=== PATIENT | female | born 1990 | race Two or more races ===

== ENCOUNTER 2024-11-21 18:05 | Emergency (ER) | payer MEDICAID, SELFPAY ==
[2024-11-21 18:18] VITALS: BP 133/87; PULSE 64; RESP 18; TEMP 37.1; O2SAT 96; BMI 29.0
--- NOTE | 2024-11-21 19:39 | XR_ITS ---
Examination: CT abdomen with intravenous contrast CT pelvis with intravenous contrast 2-D coronal reconstructions 2-D sagittal reconstructions Date and time of exam:November 21, 2024 2049 hours INDICATIONS: Abdominal pain and distention today. CTDI: vol (mGy) 14.6 DLP: (mGycm) 447 Technique: Multiple axial sections of the abdomen and pelvis have been obtained. 64 slice high-resolution scanner used. 3 mm axial sections have been obtained, post intravenous injection 60 cc [id number] 2-D sagittal, coronal reconstructions obtained. Low dose protocols were performed. One or more of the following dose reduction techniques were used; automated exposure control, adjustment of the mA and/or KV according to patient size, use of iterative reconstruction technique. Findings: No focal liver is clinic lesion Contracted gallbladder No biliary tract dilatation No pancreatic mass No renal or ureteral calculi, no hydronephrosis Aorta normal size Normal appendix No bowel obstruction Anteverted uterus No adnexal mass Contracted urinary bladder Moderate disc narrowing posteriorly at L5-S1 Tiny fat-containing femoral hernias IMPRESSION: No renal or ureteral calculi, no hydronephrosis Normal appendix No bowel obstruction diverticulitis or free air
--- NOTE | 2024-11-21 19:40 | PD.EDABDPN ---
ED Abdominal Pain RME/HPI General Chief Complaint: Abdominal Pain Stated complaint: ABDOMINAL PAIN Time seen by provider: 11/21/24 19:01 Arrival date/time: 11/21/24 18:05 RME / HPI RME / HPI narrative: 33-year-old female patient with no significant medical history, came in for evaluation regarding abdominal pain and distention. Onset of symptoms earlier today, severity of symptoms moderate, patient denies any vomiting fever diarrhea or constipation denies any dysuria frequency. Also complaining of left inguinal swelling, nontender for several days now. No medication was taken prior to arrival. Related Data Previous Rx's ?Medication ?Instructions ?Recorded ibuprofen 800 mg tablet 800 mg PO Q6H PRN pain #30 tabs 02/07/21 dicyclomine 20 mg tablet 20 mg PO TID PRN abdominal pain 11/21/24 #20 tabs Allergies Allergy/AdvReac Type Severity Reaction Status Date / Time No Known Allergies Allergy Unknown Verified 11/21/24 18:07 Review of Systems Review of Systems Narrative Review of Systems: Review of system reviewed and within normal limits except mentioned in HPI ED Exam Narrative Physical exam: VITAL SIGNS: Reviewed. GENERAL APPEARANCE: Alert and interactive, follows commands, no acute distress, HEAD AND FACE: Non-traumatic. ENT: PERRL, pink conjunctivitis, eyelid no trauma, Mucous membrane moist. NECK: Supple, nontender, no nuchal rigidity. CHEST: No tenderness, no crepitus, no paradoxical movement, no retractions. LUNGS: Clear, well ventilated, symmetric, no rales, no wheezing, no ronchi, no stridor, good breath sounds bilaterally. HEART: Regular rate, regular rhythm, no murmur, no gallops. ABDOMEN: Soft, positive bowel sounds, distended, no guarding, slight tenderness lower abdomen, no rebound, no masses, RECTAL: Deferred. GENITAL: Deferred. NEUROLOGICAL: Gross motor function intact sensory function intact, Appropriate for age. MUSCULOSKELETAL: low back nontender, full range of motion. EXTREMITIES: Movable lymphadenopathy noted on the left inguinal area, nontender, full range of motion. SKIN: Color pink, dry, no rash, no lacerations, no abrasions, no contusions. LYMPHATICS: Deferred. Course Quality Measures none Orders Category Date Time Status CT Screening NOW Care 11/21/24 19:[address] abdomen pelvis w con Stat Exams 11/21/24 19:39 Completed CBC Stat Lab 11/21/24 21:05 Completed Comprehensive Metabolic Panel Stat Lab 11/21/24 21:05 Completed HCG Qualitative,Urine Stat Lab 11/21/24 19:52 Completed Lipase Stat Lab 11/21/24 21:05 Completed Prothrombin Time with INR Stat Lab 11/21/24 21:05 Completed UA, C/S IF [Urinalysis, C/S if Indicated] Stat Lab 11/21/24 19:52 Completed Vital Signs Vital signs: Vital Signs Temperature 98.8 F 11/21/24 18:18 Pulse Rate 64 11/21/24 18:18 Respiratory Rate 18 11/21/24 18:18 Blood Pressure 133/87 H 11/21/24 18:18 Pulse Oximetry (%) 96 11/21/24 18:18 Oxygen Delivery Method Room Air 11/21/24 18:18 Abdominal Pain MDM [facility] Narrative [facility] Narrative:: 33-year-old female patient with no significant medical history, came in for evaluation regarding abdominal pain and distention. Onset of symptoms earlier today, severity of symptoms moderate, patient denies any vomiting fever diarrhea or constipation denies any dysuria frequency. Also complaining of left inguinal swelling, nontender for several days now. No medication was taken prior to arrival. Laboratory workup all came back unremarkable. CT scan of the abdomen and pelvis also came back with no acute pathology. Results discussed with the patient. Patient was given copy of the CT scan of the abdomen and pelvis. Patient appears nontoxic and hemodynamically stable. Patient discharged home and instructed to follow-up with primary care provider in 24 to 48 hours. Instructed to return to the emergency department immediately if worsening of symptoms Patient data External records reviewed:: None Clinical information provided by:: patient Social determinants that could affect healthcare access:: none Patient has the following chronic illnesses:: None How is presenting disease/condition affected by chronic disease/condition?: no chronic disease Evaluation data The following diagnostics were reviewed and interpreted by me:: lab results and radiology exam(s) Lab and/or radiology exams considered but not ordered:: Plan Interpretation Summary: See results in MDM Medications / Prescriptions Medications or Prescriptions considered but not ordered:: None Medication administrations:: None Consultations Consultation(s) initiated? (list below): No Diagnosis Differential diagnosis abdominal pain: abdominal pain, constipation and gastroenteritis Most likely diagnosis given after review of the tests above:: Abdominal pain, lymphadenopathy inguinal Admission Indicated Admission indicated?: not indicated Admission Request Was there a request for admission?: No Disposition Plan Disposition Plan: Discharge Discharge Attestation Discharge Attestation: The patient was given an opportunity to ask questions and understood the discharge instructions. Discharge instructions specifically effects, indications for sooner follow up or return to the emergency department, and the expected course of current diagnosis. Patient condition: Stable Discharge Plan Plan Patient Disposition: HOME (Self Care) Disposition Comment: Stable Prescriptions/Referrals Prescriptions/Med Rec: New dicyclomine 20 mg tablet 20 mg PO TID PRN (Reason: abdominal pain) Qty: 20 0RF No Action ibuprofen 800 mg tablet 800 mg PO Q6H PRN (Reason: pain) Qty: 30 0RF Referrals: Quan Coronado MD [Primary Care Provider] - In 1 week Problem List Clinical Impression: Abdominal pain, Inguinal adenopathy Patient/Caregiver Discharge Instructions Discharge Activity: activity as tolerated Education Materials: Abdominal Pain Additional Instructions: Thank you for the opportunity for serving you today. You are stable for discharged . You are advised to: Follow-up with your PCP in 1 to 2 days Return to ED for worsening of symptoms Increase oral fluids Take medication as prescribed Print Language: Thai Stand Alone Forms: Sally Award Info., Patient Portal Info Letter
[2024-11-21 19:59] LABS: Collection Type, Urine Clean Catch
[2024-11-21 20:11] LABS: Bilirubin,Urine Negative (Negative); Blood,Urine Negative (Negative); Clarity,Urine Clear (Clear/Hazy); Color,Urine Colorless (Lt Yel-Yel); Culture Indicated,Urine Not Indicated; Glucose, Urine Negative (Negative); Ketones,Urine Negative (Negative); Leukocyte Esterase,Urine Negative (Negative); Nitrite,Urine Negative (Negative); PH,Urine 6.5 (5.0-7.0); Protein,Urine Negative (Neg - Trace); RBC,Urine 1 /hpf (0-3); Specific Gravity,Urine 1.007 (1.001-1.035); Squamous Epithelial Cell,Urine 1 /hpf (0-5); Urobilinogen,Urine Negative mg/dL (0.0-1.0); WBC,Urine 1 /hpf (0-5)
[2024-11-21 20:12] LABS: HCG Qualitative,Urine Negative
[2024-11-21 21:23] LABS: Basophils % (Auto) 0 % (0-2.5); Eosinophils # (Auto) 0.2 Thou/mm3 (0.0-0.5); Eosinophils % (Auto) 2 % (0-10); Hematocrit 36.4 % (36.0-46.0); Hemoglobin 12.6 g/dL (12.0-16.0); Immature Granulocytes % (Auto) 0 % (0-0); Immature Granulocytes Auto 0.01 Thou/mm3 (0.00-0.00); Lymphocytes # (Auto) 4.2 Thou/mm3 (1.0-4.8); Lymphocytes % (Auto) 59 % (10-50); Mean Corpuscular HGB Conc 34.6 g/dl (31.0-37.0); Mean Corpuscular Hemoglobin 29.4 pg (25.0-35.0); Mean Corpuscular Volume 85 fL (80-100); Monocytes # (Auto) 0.3 Thou/mm3 (0.0-0.8); Monocytes % (Auto) 4 % (0-12); Neutrophils # (Auto) 2.5 Thou/mm3 (1.8-7.7); Neutrophils % (Auto) 35 % (37-80); Nucleated Red Blood Cell % 0 /100 WBC (0); Platelet Count 308 Thou/mm3 (140-440); Red Blood Count 4.28 Miln/mm3 (4.00-5.20); White Blood Count 7.1 Thou/mm3 (3.6-11.0)
[2024-11-21 21:43] LABS: Alanine Aminotransferase 14 U/L (10-49); Albumin, Serum 4.5 gm/dL (3.5-5.0); Albumin/Globulin Ratio 1.6 (1.2-2.2); Alkaline Phosphatase 89 U/L (46-116); Anion Gap 8 (7-16); Aspartate Amino Transferase 20 U/L (0-34); BUN/Creatinine Ratio 23 Ratio (12-20); Bilirubin,Total 0.4 mg/dL (0.3-1.2); Blood Urea Nitrogen 18 mg/dL (9-23); Calcium 9.8 mg/dL (8.3-10.6); Calcium (Corrected) 9.8 mg/dL (8.5-10.1); Carbon Dioxide 27.3 mMol/L (20.0-31.0); Chloride 103 mMol/L (98-107); Creatinine (Component) 0.8 mg/dL (0.6-1.3); Estimated Creatinine Clearance 87.6 mL/min (>60); Globulin 2.8 gm/dL (2.3-3.5); Glucose 93 mg/dL (74-106); Lipase 49 U/L (12-53); Osmolality,Calculated 277 (275-295); Potassium 4.1 mMol/L (3.4-5.1); Sodium 138 mMol/L (136-145); Total Protein 7.3 gm/dL (5.7-8.2); eGFR > 60 See Note
== END 2024-11-21 23:15 | disposition home or self-care (01) ==
PROVIDERS: Nurse Practitioner Family; Emergency Provider Emergency Medicine; PCP Family Medicine
DX: R59.0 Localized enlarged lymph nodes (principal)
CPT/HCPCS: 36415; 74177; 80053; 81001; 81025; 83690; 85025; 85610; 99285; A4649; Q9967

== ENCOUNTER 2025-01-09 09:05 | Day surgery (SDC) | payer MEDICAID, SELFPAY ==
[2025-01-08 10:38] VITALS: BMI 29.0
[2025-01-08 11:40] LABS: Basophils % (Auto) 0 % (0-2.5); Eosinophils # (Auto) 0.1 Thou/mm3 (0.0-0.5); Eosinophils % (Auto) 1 % (0-10); Hematocrit 36.6 % (36.0-46.0); Hemoglobin 12.7 g/dL (12.0-16.0); Immature Granulocytes % (Auto) 0 % (0-0); Immature Granulocytes Auto 0.02 Thou/mm3 (0.00-0.00); Lymphocytes # (Auto) 2.4 Thou/mm3 (1.0-4.8); Lymphocytes % (Auto) 31 % (10-50); Mean Corpuscular HGB Conc 34.7 g/dl (31.0-37.0); Mean Corpuscular Hemoglobin 29.7 pg (25.0-35.0); Mean Corpuscular Volume 86 fL (80-100); Monocytes # (Auto) 0.4 Thou/mm3 (0.0-0.8); Monocytes % (Auto) 5 % (0-12); Neutrophils # (Auto) 4.9 Thou/mm3 (1.8-7.7); Neutrophils % (Auto) 62 % (37-80); Nucleated Red Blood Cell % 0 /100 WBC (0); Platelet Count 288 Thou/mm3 (140-440); RDW Standard Deviation 38.8 fL (36.4-46.3); Red Blood Count 4.27 Miln/mm3 (4.00-5.20); White Blood Count 7.8 Thou/mm3 (3.6-11.0)
[2025-01-08 11:52] LABS: Beta HCG,Quantitative < 1 mIU/mL (<5.0)
[2025-01-08 12:00] LABS: Anion Gap 9 (7-16); BUN/Creatinine Ratio 23 Ratio (12-20); Blood Urea Nitrogen 16 mg/dL (9-23); Calcium 9.3 mg/dL (8.3-10.6); Carbon Dioxide 28.1 mMol/L (20.0-31.0); Chloride 104 mMol/L (98-107); Creatinine (Component) 0.7 mg/dL (0.6-1.3); Estimated Creatinine Clearance 99.2 mL/min (>60); Glucose 89 mg/dL (74-106); Osmolality,Calculated 281 (275-295); Potassium 4.5 mMol/L (3.4-5.1); Sodium 141 mMol/L (136-145); eGFR > 60 See Note
[2025-01-09] VITALS (8 sets, daily range): BP systolic 105–122; BP diastolic 68–94; PULSE 52–68; RESP 12–20; TEMP 36.3–36.7; O2SAT 94–100; BMI 28.5
[2025-01-09] MEDS: RINGERS LACTATED 1000 ML 1,000 ML 20 ML IV (09:44)
--- NOTE | 2025-01-09 11:30 | SUR.PHASEI ---
pt arrived to PACU via gurney with oral airway present, breathing unlabored, dressing to bilateral femoral region clean, dry, and intact, report from Toni GARCIA and Dr Macdonald.
--- NOTE | 2025-01-09 11:47 | PD.SUROPNT ---
Date of Procedure 01/09/25 Pre Op Diagnosis Bilateral femoral hernia Post Op Diagnosis Bilateral femoral hernia Procedure Repair of bilateral femoral hernias with mesh plug Findings Bilateral femoral hernias that are reducible. Hernia was relatively large on the left side. Patient was noted to have slightly enlarged right inguinal lymph node that was removed. Procedure Description Patient brought into operating room in supine position. After administration of general tracheal anesthesia, patient's bilateral groins were prepped and draped in standard surgical manner. The procedure started on the patient's right side. After administration of local anesthesia a 4 cm incision was made in right inguinal crease and dissection was deepened soft tissue. Mary's fascia was divided. Patient was noted to have an slightly enlarged lymph node that was removed. Below the inguinal ligament patient was noted to have a hernia sac that was circumferentially dissected out surrounding tissue and excised. The femoral hernia defect was identified. A medium sized mesh plug was placed through the defect. The plug was circumferentially secured with 2-0 Prolene suture, superiorly into the inguinal ligament, medially into the pubic tubercle and inferiorly into the Wei's ligament. Hemostasis was adequate and satisfactory. Mary's fascia was reapproximated with interrupted sutures using 3-0 Vicryl and incision was closed with 4-0 Monocryl in subcuticular fashion. Dermabond and pressure dressings applied. I then turned my attention to patient's left side, the procedure was performed in similar fashion. There was no enlarged lymph nodes on the left side and the hernia defect was slightly larger than the right. Patient tolerated the procedure well. She was extubated, breathing spontaneously and without difficulty and was transferred to postanesthesia care in stable condition. Instruments, needles and sponge counts were reported to be correct x 2. Anesthesia GETA and local Pathology / specimen Other (Right inguinal lymph node, right femoral hernia sac) Estimated Blood Loss 10 Condition Stable Disposition PACU Surgeon Ronak Garzon MD Surgical Staff Operation Date: 01/09/25 11:00 Case Staff Anesthesiologist: Iftikhar Macdonald RN First Assistant: Emily Moreau
--- NOTE | 2025-01-09 11:55 | SUR.PHASEI ---
pt tolerating ice chips without difficulty swallowing or n/v
--- NOTE | 2025-01-09 12:36 | SUR.PHASEII ---
pt awake, alert, able to follow commands, breathing unlabored, dressing to bilateral femoral region clean, dry, and intact, discharge instructions given with spouse present-all questions answered, pt discharged via wheelchair with all belongings and copies of discharge paperwork.
== END 2025-01-09 12:36 | disposition home or self-care (01) ==
PROVIDERS: Anesthesiology; PCP Family Medicine; Referring Provider Surgery; Visit Provider Surgery
PROC: (CPT 49550; principal; 2025-01-09 10:45)
DX: K41.20 Bilateral femoral hernia, without obstruction or gangrene, not specified as recurrent (principal)
CPT/HCPCS: 49550; 36415; 80048; 84702; 85025; A4217; A4649; C1781; J0690; J1100; J1885; J2250; J2405; J2704; J3010; J3490; J7120